=== PATIENT | male | born 1970 | race African-American/Black ===

== ENCOUNTER → 2016-11-09 | Outpatient (CLI) | payer OTHER ==
--- NOTE | 2016-11-09 13:36 | RAD ---
FDG tumor localization scan, PET/CT, 11/09/2016: History: Lung nodule Following IV injection of 12.4 mCi of 18 F-FDG, imaging was performed from the skull base to the proximal thighs. The noncontrast CT component was performed for attenuation correction and anatomic localization purposes rather than for primary diagnosis. The patient's blood glucose level at the time of injection was 93 MG/DL. There is increased activity in both tonsillar regions in a symmetric pattern. This is presumably inflammatory. Physiologic activity is seen in the laryngeal region. The neck activity is otherwise unremarkable. No abnormal pulmonary or mediastinal activity is seen. There is a given history of a lung nodule, however, outside studies are not currently available for correlative purposes. No lung nodule or mass is identified. Normal GI tract and urinary tract activity is present in the abdomen and pelvis. No hypermetabolic abdominal process is evident. Incidental CT findings include the presence of a 9 mm nonobstructing right intrarenal calculus. A left hip prosthesis is in place. IMPRESSION: 1. Increased activity in the tonsillar regions in a symmetric pattern which is most likely inflammatory. 2. Otherwise negative FDG tumor localization scan.
== END | disposition home or self-care (01) ==
LOC: PETSC 14:12
PROVIDERS: ATTEND Internal Medicine Critical Care Medicine
DX: R91.1 Solitary pulmonary nodule (principal)
CPT/HCPCS: 78815; A9552